=== PATIENT | male | born 1995 | race Caucasian/White ===

== ENCOUNTER 2018-09-09 05:10 | Emergency (ER) | payer OTHER ==
--- NOTE | 2018-09-09 05:49 | ER Document Report ---
ED Medical Screen (RME) - General Chief Complaint: Seizure Stated Complaint: SEIZURE Time Seen by Provider: 09/09/18 05:46 Primary Care Provider: TREVOR EUBANKS MD [Primary Care Provider] - Follow up as needed Notes: 23-year-old male comes by EMS for chief complaint of seizure. Family at bedside states that they heard commotion in the bathroom, found him next at the toilet, bleeding from his nose, shaking, unresponsive. Seizure activity lasted about 1 minute. Afterwards patient slowly became more responsive. Patient answers orientation questions correctly but cannot recall the events of tonight. He has a history of frequent nosebleeds. He does not have a seizure history. Past Medical History Renal/ Medical History: Denies: Hx Peritoneal Dialysis Physical Exam - Vital signs Vitals: Temp 97.9 F 09/09/18 05:28 - Neurological Orientation: Disoriented to time, Disoriented to events. No: Disoriented to person, Disoriented to place Ludy Coma Scale Eye Opening: Spontaneous Cisco Coma Scale Verbal: Confused Cisco Coma Scale Motor: Obeys Commands [place] Coma Scale Total: 14 Course - Re-evaluation Re-evalutation: Patient slightly confused, answers orientation questions correctly except he cannot recall any of the events from tonight. Appears to have hit the right side of his head on the ground. Most likely scenario is that he had a nosebleed passed out, hit his head, started having a seizure, however this is not definite. Tetanus up-to-date reportedly. Denies alcohol. I have greeted and performed a rapid initial assessment of this patient. A comprehensive ED assessment and evaluation of the patient, analysis of test results and completion of the medical decision making process will be conducted by additional ED providers. - Vital Signs Vital signs: Temp Pulse Resp BP Pulse Ox 97.9 F 09/09/18 05:28 Doctor's Discharge - Discharge Referrals: TREVOR EUBANKS MD [Primary Care Provider] - Follow up as needed
[2018-09-09 05:56] LABS: ABSOLUTE EOSINOPHILS # (AUTO) 0.3 10^3/uL (0.0-0.6); ABSOLUTE LYMPHOCYTES (AUTO) 2.8 10^3/uL (0.5-4.7); ABSOLUTE MONOCYTES (AUTO) 0.5 10^3/uL (0.1-1.4); ABSOLUTE NEUT (AUTO) 3.8 10^3/uL (1.7-8.2); BASOPHILS % (AUTO) 0.5 % (0-2); EOSINOPHILS % (AUTO) 3.9 % (0-6); HEMATOCRIT 42.8 % (37.9-51.0); HEMOGLOBIN 14.2 g/dL (13.5-17.0); MEAN CORPUSCULAR HEMOGLOBIN 30.1 pg (27.0-33.4); MEAN CORPUSCULAR HGB CONC 33.2 g/dL (32.0-36.0); MEAN CORPUSCULAR VOLUME 91 fl (80-97); MONOCYTES % (AUTO) 7.1 % (3-13); PLATELET COUNT 127 10^3/uL (150-450); RED BLOOD COUNT 4.72 10^6/uL (4.35-5.55); RED CELL DISTRIBUTION WIDTH 13.7 % (11.5-14.0); SEGMENTED NEUTROPHILS % (AUTO) 51.5 % (42-78); TOTAL CELLS COUNTED % (AUTO) 100 %; WHITE BLOOD COUNT 7.5 10^3/uL (4.0-10.5)
[2018-09-09 06:01] LABS: ALCOHOL < 10 mg/dL (NONE DETECTED); ANION GAP 17 (5-19); BLOOD UREA NITROGEN 14 mg/dL (7-20); CARBON DIOXIDE 18 mmol/L (22-30); CHLORIDE 105 mmol/L (98-107); GLUCOSE 131 mg/dL (75-110); SODIUM 140.3 mmol/L (137-145)
[2018-09-09] MEDS ORDERED: NORMAL SALINE 1000 ML 1,000 ML IV ONE (06:17)
--- NOTE | 2018-09-09 06:21 | RADIOLOGY REPORT (SQ) ---
EXAM DESCRIPTION: CT HEAD WITHOUT IV CONTRAST COMPLETED DATE/TME: 09/09/2018 05:46 CLINICAL HISTORY: 23 years, Male, head injury, seizure, confusion COMPARISON: None Available. Technique: Contiguous axial images of the brain were obtained without the administration of intravenous contrast. Coronal and sagittal reformats obtained and reviewed. This exam was performed according to our departmental dose-optimization program which includes use of Automated Exposure Control, adjustment of the mA and/or kV according to patient size and/or use of iterative reconstruction technique. Findings: Brain: No hemorrhage. No territorial infarct. No mass effect. No herniation. Ventricles: Within normal limits for patient's age. Bones: No acute osseous abnormality. Paranasal sinuses: Unremarkable. Mastoid air cells: Unremarkable. Soft tissues: No acute abnormality. IMPRESSION: No acute intracranial abnormalities.
[2018-09-09] MEDS ORDERED: ACETAMINOPHEN 325 MG TABLET PO ONE (06:33)
--- NOTE | 2018-09-09 07:36 | RADIOLOGY REPORT (SQ) ---
Right elbow two view on 09/09/2018 at 7:00 AM CLINICAL INDICATION: Right elbow pain after fall COMPARISON: None FINDINGS: There are no fractures. Visualized joints are well aligned. No joint effusion to suggest an occult fracture is noted. No bony abnormality is noted. IMPRESSION: No acute abnormality.
[2018-09-09 07:40] LABS: APPEARANCE,URINE SLIGHTLY-CLOUDY; BILIRUBIN,URINE NEGATIVE (NEGATIVE); COLOR,URINE YELLOW; GLUCOSE, URINE NEGATIVE (NEGATIVE); KETONES,URINE NEGATIVE (NEGATIVE); LEUKOCYTE ESTERASE,URINE NEGATIVE (NEGATIVE); NITRITE,URINE NEGATIVE (NEGATIVE); PROTEIN,URINE 100 mg/dL (NEGATIVE); URINE SPECIFIC GRAVITY 1.024; UROBILINOGEN,URINE NEGATIVE mg/dL (<2.0)
[2018-09-09 07:50] LABS: URINE AMPHETAMINES SCREEN NEGATIVE; URINE BARBITURATES SCREEN NEGATIVE; URINE BENZODIAZEPINES SCREEN NEGATIVE; URINE COCAINE SCREEN NEGATIVE; URINE MARIJUANA (THC) SCREEN UNCONFIRMED POSITIVE; URINE METHADONE SCREEN NEGATIVE; URINE PHENCYCLIDINE SCREEN NEGATIVE
--- NOTE | 2018-09-09 08:59 | ER Document Report ---
ED General - General Chief Complaint: Seizure Stated Complaint: SEIZURE Time Seen by Provider: 09/09/18 05:46 Primary Care Provider: TREVOR EUBANKS MD [COMMUNITY BASED STAFF] - Follow up as needed - HPI Patient complains to provider of: Passing out possible seizure-like activity Notes: Patient was seen by nighttime provider's notes provided below 23-year-old male comes by EMS for chief complaint of seizure. Family at bedside states that they heard commotion in the bathroom, found him next at the toilet, bleeding from his nose, shaking, unresponsive. Seizure activity lasted about 1 minute. Afterwards patient slowly became more responsive. Patient answers orientation questions correctly but cannot recall the events of tonight. He has a history of frequent nosebleeds. He does not have a seizure history. Patient upon my evaluation states history of passing out. Patient states he has an appointment to see ENT for his frequent nosebleeds. Patient denies any a lcohol or drug abuse. Patient states currently has a slight headache with right elbow pain. Patient otherwise is awake and oriented. Patient does admit to not remembering not to events. Patient denies any other past medical history. Patient moving all 4 extremities looks to be no obvious distress. - Related Data Allergies/Adverse Reactions: sulfamethoxazole [From Septra] Allergy (Verified 09/09/18 06:28) trimethoprim [From Novra] Allergy (Verified 09/09/18 06:28) Past Medical History - Social History Smoking Status: Never Smoker Family History: Reviewed & Not Pertinent Patient has suicidal ideation: No Patient has homicidal ideation: No Renal/ Medical History: Denies: Hx Peritoneal Dialysis Review of Systems - Review of Systems Constitutional: No symptoms reported EENT: No symptoms reported Cardiovascular: No symptoms reported Respiratory: No symptoms reported Gastrointestinal: No symptoms reported Genitourinary: No symptoms reported Male Genitourinary: No symptoms reported Musculoskeletal: No symptoms reported Skin: No symptoms reported Hematologic/Lymphatic: No symptoms reported Neurological/Psychological: Seizure - Seizure-like activity -: Yes All other systems reviewed and negative Physical Exam - Vital signs Vitals: Resp 20 09/09/18 05:14 Interpretation: Normal - General General appearance: Appears well, Alert - HEENT Head: Normocephalic, Other - Abrasions to the right orbit no pain on ocular testing. Patient does have some dried blood in bilateral nares. Eyes: Normal Pupils: PERRL - Respiratory Respiratory status: No respiratory distress Chest status: Nontender Breath sounds: Normal Chest palpation: Normal - Cardiovascular Rhythm: Regular Heart sounds: Normal auscultation Murmur: No - Abdominal Inspection: Normal Distension: No distension Bowel sounds: Normal Tenderness: Nontender Organomegaly: No organomegaly - Back Back: Normal, Nontender - Extremities General upper extremity: Normal inspection, Nontender, Normal color, Normal ROM, Normal temperature General lower extremity: Normal inspection, Nontender, Normal color, Normal ROM, Normal temperature, Normal weight bearing. No: Adamaris's sign - Neurological Neuro grossly intact: Yes Cognition: Normal Orientation: AAOx4 Ludy Coma Scale Eye Opening: Spontaneous [place] Coma Scale Verbal: Oriented [place] Coma Scale Motor: Obeys Commands [place] Coma Scale Total: 15 Speech: Normal Motor strength normal: LUE, RUE, LLE, RLE Sensory: Normal - Psychological Associated symptoms: Normal affect, Normal mood - Skin Skin Temperature: Warm Skin Moisture: Dry Skin Color: Normal Course - Re-evaluation Re-evalutation: 09/09/18 08:55 CT of the head was negative. Laboratory studies that showed elevation the patient's creatinine with along with a cluster of the urine possible dehydration. Patient states he does pass out whenever that he does see site of blood. Patient otherwise been normal while here in ER. Patient urine drug screen did return positive for marijuana however patient denies this. Possible etiology to patient's symptoms. Did explain to the patient at this time during his monitoring is no signs of seizure activity patient should avoid heights and driving and no other occurrences where if he has a seizure he can hurt himself or others. Patient states understanding patient will be discharged home follow- up primary care physician. 09/09/18 08:55 - Vital Signs Vital signs: Temp Pulse Resp BP Pulse Ox 97.9 F 17 117/67 97 09/09/18 05:28 09/09/18 08:33 09/09/18 08:33 09/09/18 08:33 - Laboratory Result Diagrams: 09/09/18 05:20 09/09/18 05:20 Laboratory results interpreted by me: 09/09/18 09/09/18 09/09/18 05:20 05:20 07:09 Plt Count 127 L Carbon Dioxide 18 L Creatinine 1.37 H Glucose 131 H Urine Protein 100 H Discharge - Discharge Clinical Impression: Observed seizure-like activity, Passed out, Dehydration Condition: Good Disposition: HOME, SELF-CARE Instructions: Head Injury Precautions ([facility]), New Seizure ([facility]) Additional Instructions: Please make sure you drink plenty of fluids as that your laboratory studies do show signs of dehydration. Please make sure you follow-up with your specialist tomorrow for your recurrent nosebleeds. I would also recommend following up with your primary care physician for your seizure-like activity. There are multiple medical diagnoses that can cause seizure-like activity that are not seizures. This can be worked up on outpatient basis. Please avoid heights climbing ladders swimming or driving has had these activities can cause you to harm herself or other people if you have another passing out episode or seizure- like occurrence. Referrals: TREVOR EUBANKS MD [COMMUNITY BASED STAFF] - Follow up as needed
[2018-09-09 09:32] VITALS: BP 104/55
== END 2018-09-09 09:20 | disposition home or self-care (01) ==
LOC: ER 05:10
DX: R29.818 Other symptoms and signs involving the nervous system (principal); R55 Syncope and collapse; E86.0 Dehydration; S00.211A Abrasion of right eyelid and periocular area, initial encounter; X58.XXXA Exposure to other specified factors, initial encounter; R04.0 Epistaxis; R51 Headache; M25.521 Pain in right elbow; Z88.1 Allergy status to other antibiotic agents
CPT/HCPCS: 99285; 96360; 36415; 80307 ×2; 82550; 83735; 85025; 80048; 81001; 73070; 70450; J7030

== ENCOUNTER 2018-10-12 09:09 | Emergency (ER) | payer OTHER ==
[2018-10-12] MEDS ORDERED: LEVETIRACETAM 1000 MG/NACL-ISO 1,000 MG/100 ML RTUPB IV ONE (09:38)
[2018-10-12 09:44] LABS: ABSOLUTE EOSINOPHILS # (AUTO) 0.2 10^3/uL (0.0-0.6); ABSOLUTE LYMPHOCYTES (AUTO) 0.7 10^3/uL (0.5-4.7); ABSOLUTE MONOCYTES (AUTO) 0.4 10^3/uL (0.1-1.4); ABSOLUTE NEUT (AUTO) 8.7 10^3/uL (1.7-8.2); BASOPHILS % (AUTO) 0.4 % (0-2); EOSINOPHILS % (AUTO) 1.6 % (0-6); HEMOGLOBIN 15.1 g/dL (13.5-17.0); LYMPHOCYTES % (AUTO) 6.6 % (13-45); MEAN CORPUSCULAR HEMOGLOBIN 29.7 pg (27.0-33.4); MEAN CORPUSCULAR HGB CONC 33.5 g/dL (32.0-36.0); MEAN CORPUSCULAR VOLUME 89 fl (80-97); MONOCYTES % (AUTO) 4.1 % (3-13); PLATELET COUNT 210 10^3/uL (150-450); RED BLOOD COUNT 5.08 10^6/uL (4.35-5.55); RED CELL DISTRIBUTION WIDTH 13.6 % (11.5-14.0); SEGMENTED NEUTROPHILS % (AUTO) 87.3 % (42-78); TOTAL CELLS COUNTED % (AUTO) 100 %; WHITE BLOOD COUNT 9.9 10^3/uL (4.0-10.5)
--- NOTE | 2018-10-12 09:46 | ER Document Report ---
ED Seizure - General Chief Complaint: Seizure Stated Complaint: POSSIBLE SEIZURE Time Seen by Provider: 10/12/18 09:38 Primary Care Provider: ROSA MENDES MD [Primary Care Provider] - Follow up as needed Information source: Patient Notes: HPI: 23-year-old male who presents today after 2 witnessed tonic-clonic seizure starting around 650 this morning noticed by his girlfriend laying in bed. They both lasted around 30 seconds. No incontinence. Tonic-clonic in activity with equal movement to bilateral upper and lower extremities. Patient supposedly had a history of a seizure around 1 month ago and was seen here at this facility. CT scan of the head was unremarkable. No seizure history prior to this. No recent trauma, fevers, vomiting, weakness or numbness. Patient did vomit after the initial seizure a month ago and after the seizure today. Brother has a history of epilepsy and sees a local neurologist. She denies any alcohol or drug usage recently. Patient currently denies any pain at this time. ROS: See HPI All other review of systems reviewed and otherwise negative Reviewed vital signs and nursing note as charted by RN. PHYSICAL EXAM: CONSTITUTIONAL: Alert and oriented and responds appropriately to questions. Well-appearing; well-nourished HEAD: Normocephalic; atraumatic EYES: PERRL; full extraocular range of motion ENT: Normal nose; no rhinorrhea; moist mucous membranes; pharynx without lesions noted NECK: Supple without meningismus; non-tender; no cervical lymphadenopathy, no masses CARD: Regular rate and rhythm; no murmurs; symmetric distal pulses RESP: Normal chest excursion without splinting or tachypnea; breath sounds clear and equal bilaterally ABD/GI: Normal bowel sounds; non-distended; soft, non-tender; no palpable organomegaly or masses BACK: The back appears normal and is non-tender to palpation EXT: Normal ROM in all joints; non-tender to palpation; no edema SKIN: No acute lesions noted NEURO: CN 2-12 intact; 5/5 bilateral upper and lower extremity strength with sensation intact to light touch PSYCH: The patient's mood and manner are appropriate. Grooming and personal hygiene are appropriate. - Related Data Allergies/Adverse Reactions: sulfamethoxazole [From ] Allergy (Verified 09/09/18 06:28) trimethoprim [From Novra] Allergy (Verified 09/09/18 06:28) Past Medical History - Social History Smoking Status: Never Smoker Frequency of alcohol use: None Drug Abuse: None Family History: Reviewed & Not Pertinent Patient has suicidal ideation: No Patient has homicidal ideation: No Renal/ Medical History: Denies: Hx Peritoneal Dialysis Physical Exam - Vital signs Vitals: Pulse Ox 99 10/12/18 09:15 Course - Re-evaluation Re-evalutation: 10/12/18 09:45 Given the history and physical examination we will order basic labs including electrolytes and liver panel as well as a urine drug screen. We will load the patient with Keppra and I will attempt to call the on-call neurologist that is covering for his brother. EKG shows a heart of 69, normal sinus rhythm, normal axis, no ST elevation or depression. 10/12/18 09:47 I did review the patient's previous chart visit. Patient was positive for marijuana at that time despite denying any drug use. CT scan of the head was unremarkable. 10/12/18 11:02 Patient denies any pain at this time. Patient had told me that he had not taken any drugs in his past. He was positive for marijuana on the last visit. He is positive for marijuana and amphetamines today. Patient has no focal neurological deficits. Vital signs are stable. I attempted to call the brother's neurologist who is a local neurologist here in town, and they are not back in the office until Saturday. Given the repeat seizure history, I have loaded the patient with Keppra. I will provide a 30-day course of Keppra with strict return precautions. I explained the importance of refusing any illegal drug intake as well as provided strict return precautions and seizure precautions. - Vital Signs Vital signs: Temp Pulse Resp BP Pulse Ox 97.8 F 20 104/63 98 10/12/18 10:29 10/12/18 10:01 10/12/18 10:01 10/12/18 10:01 - Laboratory Result Diagrams: 10/12/18 09:25 10/12/18 09:25 Laboratory results interpreted by me: 10/12/18 10/12/18 09:25 09:25 Seg Neutrophils % 87.3 H Lymphocytes % 6.6 L Absolute Neutrophils 8.7 H Carbon Dioxide 20 L Creatinine 1.46 H ALT 19 L Discharge - Discharge Clinical Impression: Seizure, Drug abuse Condition: Good Disposition: HOME, SELF-CARE Additional Instructions: Please refrain from any illegal drugs. Please make sure that she do not drive a car, take a bath, go swimming alone, or engage in any other activities that may cause serious harm or to you or others if he should have a repeat episode. Please take the Keppra as prescribed. Please follow-up with your brother's neurologist as we have discussed. Prescriptions: Levetiracetam [Keppra 500 mg Tablet] 500 mg PO Q12 #60 tablet Referrals: ROSA MENDES MD [Primary Care Provider] - Follow up as needed
[2018-10-12 10:02] LABS: ALANINE AMINOTRANSFERASE 19 U/L (21-72); ALBUMIN 4.5 g/dL (3.5-5.0); ALKALINE PHOSPHATASE 56 U/L (38-126); ANION GAP 14 (5-19); ASPARTATE AMINO TRANSFERASE 21 U/L (17-59); BILIRUBIN,DIRECT 0.1 mg/dL (0.0-0.4); BILIRUBIN,TOTAL 0.2 mg/dL (0.2-1.3); BLOOD UREA NITROGEN 17 mg/dL (7-20); CALCIUM 9.7 mg/dL (8.4-10.2); CARBON DIOXIDE 20 mmol/L (22-30); CHLORIDE 106 mmol/L (98-107); GLUCOSE 97 mg/dL (75-110); TOTAL PROTEIN 7.2 g/dL (6.3-8.2)
[2018-10-12 10:09] LABS: POTASSIUM 4.6 mmol/L (3.6-5.0)
--- NOTE | 2018-10-12 10:36 | EKG REPORT ---
SEVERITY:- ABNORMAL ECG - SINUS RHYTHM : Confirmed by: Roge Cunningham 12-Oct-2018 10:36:24
[2018-10-12] MEDS ORDERED: NORMAL SALINE 1000 ML 1,000 ML IV ONE (10:44)
[2018-10-12 10:57] LABS: URINE AMPHETAMINES SCREEN UNCONFIRMED POSITIVE; URINE BARBITURATES SCREEN NEGATIVE; URINE BENZODIAZEPINES SCREEN NEGATIVE; URINE COCAINE SCREEN NEGATIVE; URINE MARIJUANA (THC) SCREEN UNCONFIRMED POSITIVE; URINE METHADONE SCREEN NEGATIVE; URINE PHENCYCLIDINE SCREEN NEGATIVE
[2018-10-12 12:08] VITALS: BP 123/73
== END 2018-10-12 12:10 | disposition home or self-care (01) ==
LOC: ER 09:09
DX: R56.9 Unspecified convulsions (principal); F19.10 Other psychoactive substance abuse, uncomplicated; Z88.3 Allergy status to other anti-infective agents
CPT/HCPCS: 93005; 99285; 96365; 96361; 36415; 85025; 80053; 80307; 93010; J7030; J1953

== ENCOUNTER → 2018-10-30 | Outpatient (CLI) | payer OTHER ==
--- NOTE | 2018-10-30 14:56 | NEURO WORKBENCH EEG REPORT ---
EEG Report Patient: Pineda Arthur ID: [id number] Referring Doctor: Andrew Anthony MD DOS: 10/30/18 Medications: levetiracetam, divalproex sodium ER History This is a 23 year old right handed man with a history of headaches for the past month and a witnessed seizure during sleep on September 09, 2018. The patients brother has epilepsy. This EEG was requested for seizures. EEG Interpretation This EEG was recorded in the awake and minimal drowsy states. The awake EEG is characterized by a well-organized background with a well-developed and reactive posterior dominant rhythm of 11Hz. The remainder of the background consisted of a mix of alpha with some beta. Drowsiness is characterized by slowing of the background rhythms. Sleep was not obtained. Photic stimulation resulted in a good driving response. Hyperventilation resulted in mild slowing of the background. There were intermittent left sided poorly formed spikes and sharp waves (maximal F3 or P3) with one poorly formed sharply contoured waveform on the right (maximal F4) of uncertain significance noted mostly during mild drowsiness. The EKG showed periods of an irregular rhythm with periods of lengthening. EEG Classification Spikes, left, maximal F3 or P3 regions EKG irregular rhythm EEG Impression This EEG is abnormal in the awake and minimal drowsy states. There were poorly formed spikes and sharp waves on the left. Correlation with neuroimaging as well as a repeat EEG with sleep obtained is recommended. There is also an irregular rhythm noted on the EKG channel; further investigation suggested. INTERPRETING NEUROLOGIST: Tawanna Godfrey MD, [facility] Board Certified in Neurology, with special qualification in Child Neurology, and in Clinical Neurophysiology [facility]
== END ==
LOC: NEURO 08:21
PROVIDERS: ATTEND Pediatrics
DX: R56.9 Unspecified convulsions (principal)
CPT/HCPCS: 95819

== ENCOUNTER → 2018-12-16 | Outpatient (CLI) | payer OTHER ==
--- NOTE | 2018-12-16 20:56 | EKG REPORT ---
SEVERITY:- BORDERLINE ECG - SINUS RHYTHM PROBABLE LEFT ATRIAL ABNORMALITY BORDERLINE RIGHT AXIS DEVIATION : Confirmed by: Donna Che MD 16-Dec-2018 20:55:12
== END ==
LOC: OD 10:54
PROVIDERS: ATTEND Pediatrics
DX: R94.31 Abnormal electrocardiogram [ECG] [EKG] (principal); G40.209 Localization-related (focal) (partial) symptomatic epilepsy and epileptic syndromes with complex partial seizures, not intractable, without status epilepticus; R56.9 Unspecified convulsions
CPT/HCPCS: 93005; 93010

== ENCOUNTER → 2019-10-27 | Outpatient (CLI) | payer BC ==
--- NOTE | 2019-10-27 18:22 | NEURO WORKBENCH EEG REPORT ---
EEG Report Patient: Pineda Arthur ID: [id number] Referring Doctor: Andrew Anthony MD DOS: 10/27/2019 Medications: Depakote History This is a 24 year old right handed male with a history of seizures in 2019. He had an EEG on 10/30/2018. This EEG was requested for seizures. EEG Interpretation This EEG was recorded in the awake, drowsy, and sleep states. The awake EEG is characterized by a well-organized background with a well developed and reactive posterior dominant rhythm of 9.5 Hz. The remainder of the background was characterized by a combination of alpha with some beta frequencies. Drowsiness was characterized by slowing of the background rhythms. Vertex waves and sleep spindles were seen in the midline head regions. Photic stimulation resulted in a moderately good driving response. Hyperventilation resulted in generalized slowing of the background rhythms. There were several poorly formed spikes and sharp waves, multi-focal in origin, mostly left-sided, maximal in frontal, temporal, or parietal with some bi-frontal and generalized (maximal frontal or parietal) spikes and sharp waves. These did not increase during sleep. The EKG showed periods of an irregular rhythm with some prolongation between QRS complexes. EEG Classification * Spikes, sharp waves, multi-focal, generalized * EKG irregular rhythm EEG Impression This EEG is abnormal. Compared to the prior EEG dated 10/30/2018, it has changed somewhat with epileptiform abnormalities now appearing more multi-focal and generalized; the frequency of discharges remains similar. The EKG appears similar as well. INTERPRETING NEUROLOGIST: Tawanna Godfrey MD, [facility] Board Certified in Neurology, with special qualification in Child Neurology, and in Clinical Neurophysiology [facility]
== END ==
LOC: NEURO 13:00
PROVIDERS: ATTEND Pediatrics
DX: G40.209 Localization-related (focal) (partial) symptomatic epilepsy and epileptic syndromes with complex partial seizures, not intractable, without status epilepticus (principal); R94.31 Abnormal electrocardiogram [ECG] [EKG]
CPT/HCPCS: 95819